=== PATIENT | female | born 1990 | race African-American/Black ===

== ENCOUNTER 2024-04-23 12:54 | Emergency (ER) | payer MEDICAID, OTHER ==
[~2024-04-23] VITALS: Ht 162.6 cm; Wt 100.7 kg
[2024-04-23 13:02] VITALS: O2SAT 100
[2024-04-23] MEDS ORDERED: FLUORESCEIN SODIUM 1MG/STRIP BOTHEYE ONE (15:00)
[2024-04-23] MEDS: SODIUM CHLORIDE 0.9% 1,000 ML IV ONE (17:55)
[2024-04-23] MEDS: FLUORESCEIN SODIUM 1MG/STRIP BOTHEYE NR (17:56)
[2024-04-23 18:04] LABS: BASOPHILS % 1.7 % (0.0-2.0); EOSINOPHILS % 4.1 % (0.0-5.0); HEMATOCRIT. 41.4 % (36.0-48.0); HEMOGLOBIN. 14.1 g/dL (12.0-16.0); LYMPHOCYTES % 40.2 % (20.0-50.0); MEAN CORPUSCULAR HGB CONC 34.2 g/dL (31.0-37.0); MEAN CORPUSCULAR VOLUME 90.7 fL (81.0-99.0); MEAN PLATELET VOLUME 9.2 fl (7.4-10.4); PLATELET 273 x1000/uL (130-400); RED BLOOD CELL COUNT 4.56 mill/uL (4.2-5.4); RED CELL DISTRIBUTION WIDTH 13.2 % (11.6-14.6)
[2024-04-23 18:13] LABS: CHLORIDE 103 mEq/L (98-107); POTASSIUM 3.9 mEq/L (3.5-5.1); SODIUM 133 mEq/L (136-145)
[2024-04-23 18:14] LABS: CARBON DIOXIDE 23 mEq/L (21-32)
[2024-04-23 18:19] LABS: CREATININE 0.8 mg/dL (0.6-1.0); UREA NITROGEN BLOOD 11 mg/dL (9-23)
[2024-04-23 18:22] LABS: HCG SCREEN NEGATIVE
[2024-04-23 18:30] LABS: GLUCOSE 409 mg/dL (70-105)
[2024-04-23 18:39] LABS: BETA HYDROXYBUTYRATE 0.2 mMol/L (0.0-0.3)
[2024-04-23 19:12] VITALS: BP 131/60; PULSE 64; RESP 15; TEMP 36.94740; O2SAT 99
[2024-04-23] MEDS ORDERED: INSULIN LISPRO 100 UNITS/ML SUBCUT NR (20:00)
== END 2024-04-23 20:47 | disposition left against medical advice (07) ==
LOC: ER 12:54
DX: H57.12 Ocular pain, left eye (principal); H53.142 Visual discomfort, left eye; E11.9 Type 2 diabetes mellitus without complications; J45.909 Unspecified asthma, uncomplicated; Z53.21 Procedure and treatment not carried out due to patient leaving prior to being seen by health care provider
CPT/HCPCS: 80048; 82010; 82962; 84703; 85025; 36415; 96360; 99283; J7030; Z7610 ×3